=== PATIENT | female | born 1990 | race American Indian/Alaskan Native ===

== ENCOUNTER 2016-03-14 09:56 | Emergency (ER) | payer SELFPAY ==
[2016-03-14 10:13] VITALS: BP 133/89
--- NOTE | 2016-03-14 10:25 | Emergency Department Report ---
Chief Complaint: Chest Pain Stated Complaint: CHEST PAIN/HEADACHE Time Seen by Provider: 03/14/16 10:20 - HPI History of Present Illness: 25-year-old female presents today with chest pain 1 day and headache 1 week. Denies history of headaches. States that she was recently diagnosed with hypertension and her medication is not working. Patient is currently on HCTZ 25 mg once a day and is compliant with her medication. Denies fever, chills, nausea, vomiting, shortness of breath, abdominal pain. - ROS Review of Systems: Per HPI - Exam Vital Signs: Vital Signs 03/14/16 10:05 Temperature 98.1 F Pulse Rate 82 Respiratory 16 Rate Blood Pressure 133/89 O2 Sat by Pulse 99 Oximetry Physical Exam: General: 25-year-old female in no acute distress. Well-developed, well- nourished. CV: Regular rate and rhythm. Chest wall: Positive for tenderness to palpation of the anterior chest wall. Lungs: Clear to auscultation bilaterally. Abdomen: No tenderness to palpation. No guarding or rebound tenderness. MSE screening note: Focused history and physical exam performed. Due to findings the following was ordered: ED Disposition for MSE Condition: Stable
[2016-03-14 10:53] LABS: Basophils % (Auto) 0.7 % (0.0-1.8); Eosinophils % (Auto) 2.2 % (0.0-4.3); Hematocrit 38.7 % (30.3-42.9); Hemoglobin 12.7 gm/dl (10.1-14.3); Mean Corpuscular HGB Conc 33 % (30-34); Mean Corpuscular Hemoglobin 29 pg (28-32); Mean Corpuscular Volume 90 fl (79-97); Platelet Count 191 K/mm3 (140-440); Red Blood Count 4.32 M/mm3 (3.65-5.03); Red Cell Distribution Width 12.9 % (13.2-15.2); White Blood Count 5.9 K/mm3 (4.5-11.0)
[2016-03-14 11:12] LABS: Creatine Kinase MB 1.1 ng/mL (0.0-4.0)
[2016-03-14 11:13] LABS: Anion Gap 16 mmol/L; BUN/Creatinine Ratio 18.33; Blood Urea Nitrogen 11 mg/dL (7-17); Calcium 8.9 mg/dL (8.4-10.2); Carbon Dioxide 29 mmol/L (22-30); Chloride 98.3 mmol/L (98-107); Creatine Kinase 115 units/L (30-135); Glucose 100 mg/dL (65-100); Lipase 28 units/L (13-60); Potassium 3.5 mmol/L (3.6-5.0); Sodium 140 mmol/L (137-145)
--- NOTE | 2016-03-15 00:26 | Admit Criteria Form ---
Admission Criteria Documentation: CHEST PAIN: OBSERVATION CARE USE THIS FORM ONLY WHEN INPATIENT ADMISSION CRITERIA ARE NOT MET. (Place X for any and all applicable criteria): Placement for observation care may be appropriate for a patient with chest pain and ANY ONE of the following (1)(2)(3)(4)(5): []I. Suspected cardiac ischemia with nondiagnostic initial evaluation (eg, ECG, cardiac biomarkers) requiring further immediate evaluation such as stress testing and repeat laboratory testing to clarify diagnosis []II. Other suspected diagnosis requiring observation and monitoring during diagnostic evaluation (eg, pulmonary embolus, aortic dissection, pneumothorax, pericarditis, GI bleeding) (6)(7)(8)(9) [X]III. Other observation care needs (Use General Criteria: Observation Care) The original [employer] content created by [employer] has been revised. The portions of the content which have been revised are identified through the use of italic text, and [facility] has neither reviewed nor approved the modified material. All other unmodified content is copyright [facility] Content Synd[employer]: [employer]. Please see references footnoted in the original [facility] edition 2015 Admission Criteria Met: Pending
--- NOTE | 2016-03-16 12:19 | ED Elopement Review ---
ED Pt Elopement review - Results review Lab results: Laboratory Tests 03/14/16 03/14/16 10:41 10:41 WBC 5.9 RBC 4.32 Hgb 12.7 Hct 38.7 MCV 90 MCH 29 MCHC 33 RDW 12.9 L Plt Count 191 Lymph % (Auto) 40.7 H [place] % (Auto) 7.8 H Eos % (Auto) 2.2 Baso % (Auto) 0.7 Lymph # 2.4 [place] # 0.5 Eos # 0.1 Baso # 0.0 Seg Neutrophils % 48.6 Seg Neutrophils # 2.9 Sodium 140 Potassium 3.5 L Chloride 98.3 Carbon Dioxide 29 Anion Gap 16 BUN 11 Creatinine 0.6 L Estimated GFR > 60 BUN/Creatinine Ratio 18.33 Glucose 100 Calcium 8.9 Total Creatine Kinase 115 CK-MB (CK-2) Rel Index 0.9 Troponin T < 0.010 Lipase 28 - Call Back decision Pt Call Back Decision: No action required
== END 2016-03-14 23:15 | disposition left against medical advice (07) ==
LOC: ED 09:56
DX: R07.9 Chest pain, unspecified (principal); R51 Headache; I10 Essential (primary) hypertension; Z53.21 Procedure and treatment not carried out due to patient leaving prior to being seen by health care provider
CPT/HCPCS: 36415; 80048; 82550; 82553; 83690; 84484; 85025; 93005; 93010